=== PATIENT | male | born 1990 | race Caucasian/White ===

== ENCOUNTER → 2018-12-05 | Outpatient (CLI) | payer BC ==
[~2018-12-05] MED LIST: ALBIPROI INH; ALBU90OI; ALBUIS; AMOCLA875 PO; AZIT250 PO; BENZ100A PO; CODGUAEL PO; CRUTCH4 USE; FLUSAL1005; LORA10ER; MONT10T; OXYACE5T PO; RXCODACET PO
== END | disposition home or self-care (01) ==
LOC: LAB EV 08:54 → LAB SHORT 08:54
DX: R50.9 Fever, unspecified (principal)
CPT/HCPCS: 87070

== ENCOUNTER → 2025-06-04 | Outpatient (CLI) | payer BC ==
[2025-06-04 11:26] LABS: BASOPHILS ABSOLUTE AUTO 0.11 K/mm3 (0.00-0.23); BASOPHILS PERCENT AUTO 1 % (0-2); EOSINOPHILS ABSOLUTE AUTO 0.63 K/mm3 (0.00-0.68); EOSINOPHILS PERCENT AUTO 7 % (0-6); Hematocrit 40.4 % (37.0-53.0); Hemoglobin 12.4 g/dL (13.5-17.5); IMMATURE GRAN ABSOLUTE AUTO 0.07 K/mm3 (0.00-0.10); IMMATURE GRAN PERCENT AUTO 1 % (0-1); LYMPHOCYTES ABSOLUTE AUTO 2.82 K/mm3 (0.84-5.20); LYMPHOCYTES PERCENT AUTO 31 % (21-46); MONOCYTES ABSOLUTE AUTO 0.56 K/mm3 (0.16-1.47); MONOCYTES PERCENT AUTO 6 % (4-13); Mean Corpuscular HGB Conc 30.7 g/dL (31.5-36.5); Mean Corpuscular Volume 63 fL (80-100); NEUTROPHILS ABSOLUTE AUTO 4.99 K/mm3 (1.96-9.15); NEUTROPHILS PERCENT AUTO 54 % (41-73); NRBC ABSOLUTE 0.00 K/mm3 (0.00-0.02); NRBC Auto 0.0 /100 WBC (0.0-0.2); Platelet Count 297 K/mm3 (150-400); RDW Coefficient Variation 17.8 % (11.7-14.2); RDW Standard Deviation 35.8 fL (35.1-46.3)
[2025-06-04 11:46] LABS: Alanine Aminotransfer (ALT/SGP 61.0 U/L (12-78); Albumin, Blood 3.8 g/dL (3.4-5.0); Albumin/Globulin Ratio 1.0 (0.8-1.8); Anion Gap 6.0 mmol/L (3-11); Aspartate Aminotrans (AST/SGOT 99.0 U/L (12-37); Bilirubin, Total 0.4 mg/dL (0.1-1.0); Blood Urea Nitrogen 15.0 mg/dL (8-24); CO2, Blood 29.0 mmol/L (21-32); Calcium, Blood 8.6 mg/dL (8.5-10.1); Chloride, Blood 108.0 mmol/L (98-108); Creatinine, Blood 0.81 mg/dL (0.60-1.20); Ferritin, Serum 202.0 ng/mL (26-388); Globulin, Blood 3.8 g/dL (2.2-4.0); Glucose, Blood 95.0 mg/dL (70-99); Potassium, Blood 4.1 mmol/L (3.5-5.5); Sodium, Blood 139.0 mmol/L (136-145); Total Iron Binding Capacity 251.0 ug/dL (250-450); Total Protein, Blood 7.6 g/dL (6.4-8.2)
== END ==
LOC: LAB 10:28 → LAB SHORT 10:28
PROVIDERS: Family Medicine
DX: D50.9 Iron deficiency anemia, unspecified (principal)
CPT/HCPCS: 80053; 82728; 83540; 83550; 85025